=== PATIENT | female | born 1965 | race Caucasian/White ===

== ENCOUNTER 2022-01-18 06:35 | Emergency (ER) | payer SELFPAY ==
[~2022-01-18] VITALS: Ht 152.4 cm; Wt 57.6 kg
[2022-01-18] MEDS ORDERED: TAMIFLU75 MG PO (07:38)
[2022-01-18] MEDS ORDERED: ONDANSETRON ODT4 MG PO (07:38)
[2022-01-18 07:40] LABS: CLARITY,URINE CLEAR (CLEAR); COLOR,URINE YELLOW (YELLOW); KETONES,URINE NEGATIVE (NEGATIVE); LEUKOCYTE ESTERASE ,URINE NEGATIVE (NEGATIVE); NITRITE,URINE NEGATIVE (NEGATIVE); PROTEIN,URINE DIPSTICK 1+ (NEGATIVE)
[2022-01-18 07:41] LABS: AMPHETAMINES SCREEN,URINE NEGATIVE (NEGATIVE); BENZODIAZEPINES SCREEN,URINE POSITIVE (NEGATIVE); PHENCYCLIDINE SCREEN,URINE NEGATIVE (NEGATIVE)
[2022-01-18 08:05] LABS: BACTERIA,URINE FEW /HPF; EPITHELIAL CELLS,URINE FEW /LPF; WBC,URINE (MAN) 0-5 /HPF (0-5)
== END 2022-01-18 07:56 | disposition home or self-care (01) ==
LOC: ER 06:42
DX: R05.9 Cough, unspecified (principal); J10.1 Influenza due to other identified influenza virus with other respiratory manifestations; R11.2 Nausea with vomiting, unspecified; F12.10 Cannabis abuse, uncomplicated; Z20.822 Contact with and (suspected) exposure to COVID-19; F17.210 Nicotine dependence, cigarettes, uncomplicated
CPT/HCPCS: 0223U; 36415; 71046; 74176; 80307; 81001; 87400; 99284